=== PATIENT | female | born 1935 | race Caucasian/White ===

== ENCOUNTER 2020-02-17 17:07 | Inpatient (IN) | payer MEDICARE, MEDICAID, SELFPAY ==
[2020-02-17] VITALS (8 sets, daily range): BP systolic 73–124; BP diastolic 42–78; PULSE 95–144; RESP 16–20; TEMP 36.8–37.2; O2SAT 93–100; BMI 25.6
--- NOTE | 2020-02-17 17:13 | XR_ITS ---
WS: [id number] CHEST XRAY TECHNIQUE: Portable chest. CLINICAL INFORMATION: ams COMPARISON: None. FINDINGS: Heart: Cardiomegaly. Tortuous thoracic aorta. Lungs: Moderate chronic emphysematous changes. No acute pulmonary infiltrates. Calcified hilar nodes and calcified granulomas. Bones: Osteopenia. XR/XR chest 1V portable [id number] IMPRESSION: 1. Moderate chronic emphysematous changes. No acute pulmonary infiltrates. 2. Cardiomegaly. 3. Chronic granulomatous disease.
--- NOTE | 2020-02-17 17:13 | CTR_ITS ---
PROCEDURE INFORMATION: Exam: CT Head Without Contrast Exam date and time: 02/17/2020 5:25 PM Age: 84 years old Clinical indication: Altered mental status/memory loss; Additional info: AMS TECHNIQUE: Imaging protocol: Computed tomography of the head without contrast. Total DLP: 750.65 mGy-cm Radiation optimization: All CT scans at this facility use at least one of these dose optimization techniques: automated exposure control; mA and/or kV adjustment per patient size (includes targeted exams where dose is matched to clinical indication); or iterative reconstruction. COMPARISON: No relevant prior studies available. FINDINGS: Brain: There is volume loss and periventricular low density compatible with chronic small vessel disease changes. There is encephalomalacia in the posterior right frontal lobe and right parietal lobe and in the left parietal/occipital lobes. There is decreased density in the right caudate, right internal and external capsule and white matter adjacent to the frontal horn of the right lateral ventricle concerning for edema/new area of infarction. There is no midline shift. There is no acute hemorrhage. No additional area of new edema. Ventricles: There is mild mass effect/narrowing of the adjacent right lateral ventricle. The remaining ventricles are appropriate in size. Bones/joints: Unremarkable. No acute fracture. Sinuses: Visualized sinuses are unremarkable. No fluid levels. Mastoid air cells: Visualized mastoid air cells are well aerated. Soft tissues: Unremarkable. CT/CT head wo con* [id number] IMPRESSION: 1. Chronic volume loss and small vessel disease changes with multiple areas of encephalomalacia. 2. There is a ill-defined area of decreased density in the right basal ganglia/white matter concerning for new area of evolving infarction/edema with mild mass effect on the right lateral ventricle. No hemorrhage or midline shift. Radiation Dose CTDIVOL = (mGy): DLP = 750.65 (mGy-cm)
--- NOTE | 2020-02-17 17:14 | ECG_ITS ---
Measurements Intervals [place] Rate: 130 P: [place]: 0 QRS: -34 QRSD: 74 T: 38 QT: 304 QTc: 447 ATRIAL FIBRILLATION WITH RAPID VENTRICULAR RESPONSE LEFT AXIS DEVIATION [QRS AXIS < -30] MINIMAL ST DEPRESSION [0.025+ mV ST DEPRESSION] No previous ECG available for comparison Electronically Signed On 02-18-2020 18:08:03 CDT by Alana Seals M.D. [email or web address]
--- NOTE | 2020-02-17 17:17 | ED_ITS ---
HPI - Altered Mental Status General: Chief Complaint: General Medical Stated Complaint: UNRESPONSIVE Time Seen by Provider: 02/17/20 17:07 Source: EMS Mode of arrival: EMS Limitations: altered mental status History of Present Illness: HPI narrative: 84-year-old female from reading [facility] notes from physician sounds like patient is at end-of-life and he recommended comfort care but family wants patient to be sent to the hospital for further work-up and treatment. She has been unresponsive for 3 to 4 days and rarely opens her eyes. Patient is breathing currently on her own will not answer any questions or respond to any stimuli. She has a history of strokes in the past. Has been afebrile. MD complaint: altered mental status Onset (ago): day(s) Review of Systems General: Reports: ROS unobtainable due to mental status PFSH ED PFSH: Social History Smoking and tobacco status: former smoker Physical Exam Const: COMMON NORMALS: negative for alert EXAM LIMITATIONS: altered mental status GENERAL APPEARANCE: lethargic, ill appearing and frail appearing ORIENTATION/CONSCIOUSNESS: Yes lethargic; not oriented to person and not oriented to place HENMT: COMMON NORMALS: normocephalic and head/scalp atraumatic HEAD & SCALP: normocephalic and atraumatic Eye: COMMON NORMALS: PERRL and EOMs intact bilaterally PUPIL: Yes PERRL Neck/C-Spine: COMMON NORMALS: full ROM and supple Chest: COMMONS NORMALS: inspection of chest normal and palpation of chest normal Resp: COMMON NORMALS: normal respiratory effort, no retractions, no use of accessory muscles and clear to auscultation bilaterally AUSCULTATION: clear to auscultation bilaterally Cardio: COMMON NORMALS: no murmurs RATE: tachycardic RHYTHM: abnormal rhythm irregularly irregular GI: COMMON NORMALS: normal to inspection, nondistended, normoactive bowel sounds, soft to palpation, non-tender and no masses PALPATION: Yes soft Extremity: COMMON NORMALS: normal to inspection and full ROM Neuro: SENSORIUM/ORIENTATION: No alert, No oriented to person, No oriented to place and Yes lethargic SPEECH: speech abnormal Psych: MEMORY/COGNITION: Yes cognition grossly impaired Skin: COMMON NORMALS: no rashes or lesions noted and no wounds GENERAL SKIN EXAM: no rashes or lesions noted Course Vital Signs: Vital signs: Vital Signs Temperature 98.9 F 02/17/20 17:12 Pulse Rate 139 H 02/17/20 18:37 Respiratory Rate 17 02/17/20 18:37 Blood Pressure 73/42 02/17/20 18:37 Pulse Oximetry 100 02/17/20 18:37 MDM - Altered Mental Status MDM Narrative: Medical decision making narrative: Patient presents with altered mental status along with likely CVA and urinary tract infection. Patient hypotensive and septic. Her blood pressure here is improving with IV fluids so is her heart rate. I had a long discussion with her grandson who is power of vp of global marketing and he did not want any aggressive care. Patient is now DNR and DNI he does not want central line or pressors. We will treat her with IV fluids and IV antibiotics and admit her to the hospital and reassess in a day or 2. Grandson was considering comfort care but states he would like to try at least a day or 2 of treatment at this time. I spoke to Dr. Miller and will admit to [facility]. Lab Data: Labs: Lab Results 02/17/20 02/17/20 02/17/20 Range/Units 18:08 18:08 18:08 WBC 13.2 H (4.0-10.0) 10^3/ uL RBC 4.47 (4.1-5.3) 10^6/u L Hgb 13.4 (11.5-15.3) g/dL Hct 45.9 (37.0-47.0) % MCV 102.7 H (81-99) fL MCH 30.0 (28.0-34.0) pg MCHC 29.2 L (30.0-36.0) g/dL RDW 17.1 H (12.1-15.1) % Plt Count 223 (130-400) 10^3/c mm MPV 11.9 H (7.4-10.4) fL Neut % (Auto) 78.5 % Lymph % (Auto) 13.8 % [place] % (Auto) 6.5 % Eos % (Auto) 0.2 % Baso % (Auto) 0.2 % Neut # (Auto) 10.4 H (1.8-7.7) 10^3/u L Lymph # (Auto) 1.8 (0.8-4.8) 10^3/u L [place] # (Auto) 0.9 (0.2-0.9) 10^3/u L Eos # (Auto) 0.0 (0.0-0.8) 10^3/u L Baso # (Auto) 0.0 (0.0-0.1) 10^3/u L Nucleated RBC % (a uto) 0.2 % Nucleated RBCs # 0.0 /100WBC PT 23.00 H (10.5-13.3) SECO NDS INR 1.95 H (0.8-1.2) Sodium 158 H (136-145) mmol/L Potassium 3.9 (3.5-5.1) mmol/L Chloride 120 H (98-107) mmol/L Carbon Dioxide 27 (22-29) mmol/L Anion Gap 14.9 (5-19) BUN 25 H (8-23) mg/dL Creatinine 0.6 (0.5-0.9) mg/dL Glucose 127 H (65-115) mg/dL Calculated Osmolal ity 324 H (285-295) mOsm/k g Lactate (0.5-2.2) mmol/L Calcium 8.6 (8.5-10.5) mg/dL Total Bilirubin 0.5 (0.15-1.2) mg/dL AST 32 (0-32) U/L ALT 25 (0-33) U/L Alkaline Phosphata se 63 (35-105) IU/L Total Protein 6.3 L (6.6-8.7) g/dL Albumin 3.2 L (3.5-5.2) g/dL Globulin 3.1 (1.3-4.6) g/dL 02/17/20 Range/Units 18:08 WBC (4.0-10.0) 10^3/ uL RBC (4.1-5.3) 10^6/u L Hgb (11.5-15.3) g/dL Hct (37.0-47.0) % MCV (81-99) fL MCH (28.0-34.0) pg MCHC (30.0-36.0) g/dL RDW (12.1-15.1) % Plt Count (130-400) 10^3/c mm MPV (7.4-10.4) fL Neut % (Auto) % Lymph % (Auto) % [place] % (Auto) % Eos % (Auto) % Baso % (Auto) % Neut # (Auto) (1.8-7.7) 10^3/u L Lymph # (Auto) (0.8-4.8) 10^3/u L [place] # (Auto) (0.2-0.9) 10^3/u L Eos # (Auto) (0.0-0.8) 10^3/u L Baso # (Auto) (0.0-0.1) 10^3/u L Nucleated RBC % (a uto) % Nucleated RBCs # /100WBC PT (10.5-13.3) SECO NDS INR (0.8-1.2) Sodium (136-145) mmol/L Potassium (3.5-5.1) mmol/L Chloride (98-107) mmol/L Carbon Dioxide (22-29) mmol/L Anion Gap (5-19) BUN (8-23) mg/dL Creatinine (0.5-0.9) mg/dL Glucose (65-115) mg/dL Calculated Osmolal ity (285-295) mOsm/k g Lactate 1.8 (0.5-2.2) mmol/L Calcium (8.5-10.5) mg/dL Total Bilirubin (0.15-1.2) mg/dL AST (0-32) U/L ALT (0-33) U/L Alkaline Phosphata se (35-105) IU/L Total Protein (6.6-8.7) g/dL Albumin (3.5-5.2) g/dL Globulin (1.3-4.6) g/dL Imaging Data^: CT Head: Radiologist's impression: [place] [address] CT Scan Report Signed Patient: TRINIDAD ALONSO Unit #: [id number] : 1935 Age/Sex: 84 / F ADM Date: 02/17/20 Loc: ER Room/Bed: Attending Dr: Ordering Provider/Ordering MD: August Levy MD Date of Service: 02/17/20 Procedure(s): CT head wo con* [id number] Accession Number(s): [id number] Report Number: [id number] PROCEDURE INFORMATION: Exam: CT Head Without Contrast Exam date and time: 02/17/2020 5:25 PM Age: 84 years old Clinical indication: Altered mental status/memory loss; Additional info: AMS TECHNIQUE: Imaging protocol: Computed tomography of the head without contrast. Total DLP: 750.65 mGy-cm Radiation optimization: All CT scans at this facility use at least one of these dose optimization techniques: automated exposure control; mA and/or kV adjustment per patient size (includes targeted exams where dose is matched to clinical indication); or iterative reconstruction. COMPARISON: No relevant prior studies available. FINDINGS: Brain: There is volume loss and periventricular low density compatible with chronic small vessel disease changes. There is encephalomalacia in the posterior right frontal lobe and right parietal lobe and in the left parietal/occipital lobes. There is decreased density in the right caudate, right internal and external capsule and white matter adjacent to the frontal horn of the right lateral ventricle concerning for edema/new area of infarction. There is no midline shift. There is no acute hemorrhage. No additional area of new edema. Ventricles: There is mild mass effect/narrowing of the adjacent right lateral ventricle. The remaining ventricles are appropriate in size. Bones/joints: Unremarkable. No acute fracture. Sinuses: Visualized sinuses are unremarkable. No fluid levels. Mastoid air cells: Visualized mastoid air cells are well aerated. Soft tissues: Unremarkable. CT/CT head wo con* [id number] IMPRESSION: 1. Chronic volume loss and small vessel disease changes with multiple areas of encephalomalacia. 2. There is a ill-defined area of decreased density in the right basal ganglia/white matter concerning for new area of evolving infarction/edema with mild mass effect on the right lateral ventricle. No hemorrhage or midline shift. CXR: Attestation: I personally reviewed and interpreted this imaging study as follows: My impression: no acute abnormality EKG Data^: EKG 1: Attestation: I personally reviewed and interpreted this EKG as follows: EKG interpretation date: 02/17/20 EKG interpretation time: 18:36 Interpretation: afib hr [address] or t wave abnormalities Critical Care Time Critical Care Time: Critical Care Time: Yes Total Critical Care Time: 36 Attestation: This case had a high probability of a clinically significant, sudden, or life threatening deterioration of this patient's condition which required my full and direct attention, intervention and personal management. Discharge Plan Discharge Patient Disposition: Admitted As Inpatient Clinical Impression: Septic shock, Cystitis, A-fib, CVA (cerebral vascular accident) Condition: Stable Prescriptions: No Action acetaminophen 325 mg Tablet See Rx Instructions .ROUTE .COMPLEX RF: 0 Tylenol 325 mg Tablet 650 mg PO BID RF: 0 Senna-S 8.6-50 mg Tablet 2 tab PO BID RF: 0 Plavix 75 mg Tablet 75 mg PO DAILY RF: 0 Pepcid 20 mg Tablet 20 mg PO DAILY RF: 0 Milk of Magnesia 400 mg/5 mL Suspension See Rx Instructions .ROUTE .COMPLEX RF: 0 losartan 25 mg Tablet 12.5 mg PO DAILY RF: 0 Lexapro 10 mg Tablet 10 mg PO DAILY RF: 0 Dulcolax (bisacodyl) 4 tab PO PRN RF: 0 Mylanta Maximum Strength 30 ml PO Q6H PRN (Reason: Indigestion) RF: 0 1/2 Ns Tko See Rx Instructions .ROUTE .COMPLEX RF: 0 Diflucan 100 mg Tablet 100 mg PO DAILY RF: 0 Keppra 500 mg Tablet 500 mg PO DAILY RF: 0 Zofran 4 mg Tablet 4 mg PO Q8H PRN (Reason: Nausea) RF: 0 ceftriaxone 1 gram Recon Soln 1 g IV EVERY OTHER DAY RF: 0 Dulcolax (bisacodyl) 10 mg Suppository 10 mg CA PRN RF: 0 magnesium citrate Solution See Rx Instructions .ROUTE .COMPLEX RF: 0 albuterol sulfate 90 mcg/actuation Hfa Aerosol Inhaler 2 puff INHALATION Q4H PRN (Reason: Wheezing) RF: 0 acetaminophen 500 mg/15 mL Liquid 500 mg PO Q4H PRN (Reason: Pain) RF: 0 Florastor 250 mg Capsule 25 mg PO DAILY RF: 0 Ds 1/2 Ns With 10 Meq Kcl See Rx Instructions .ROUTE .COMPLEX RF: 0 Nystatin Solution 5 ml PO QID RF: 0 Ss Emema See Rx Instructions .ROUTE .COMPLEX RF: 0 acetaminophen See Rx Instructions .ROUTE .COMPLEX RF: 0 guaifenesin 2 tsp PO Q6H PRN (Reason: Cough) RF: 0 nystatin See Rx Instructions .ROUTE .COMPLEX RF: 0 Referrals: Sd Shields MD [Primary Care Provider] - Coding Level of Care Code ED Funeral Pre Need Consultant for Chg Fwd Exam Comprehensive
[2020-02-17] MEDS: sodium chloride 0.9% 1,000 ML 999 ML IV ×2 (18:20)
[2020-02-17 18:41] LABS: Basophils % 0.2 %; Eosinophils % 0.2 %; Hematocrit 45.9 % (37.0-47.0); Hemoglobin 13.4 g/dL (11.5-15.3); Lymphocytes # 1.8 10^3/uL (0.8-4.8); Lymphocytes % 13.8 %; Mean Corpuscular HGB Conc 29.2 g/dL (30.0-36.0); Mean Corpuscular Volume 102.7 fL (81-99); Mean Platelet Volume 11.9 fL (7.4-10.4); Monocytes # 0.9 10^3/uL (0.2-0.9); Monocytes % 6.5 %; Neutrophils # 10.4 10^3/uL (1.8-7.7); Neutrophils % 78.5 %; Nucleated Red Blood Cells % 0.2 %; Platelet Count 223 10^3/cmm (130-400); Red Blood Count 4.47 10^6/uL (4.1-5.3); Red Cell Distribution Width 17.1 % (12.1-15.1); White Blood Count 13.2 10^3/uL (4.0-10.0)
[2020-02-17] MEDS: cefTRIAXone 1,000 MG in sodium chloride 0.9% (plus) 50 ML 100 MG IV (18:41)
[2020-02-17 18:52] LABS: Alanine Aminotransferase 25 U/L (0-33); Albumin Level 3.2 g/dL (3.5-5.2); Alkaline Phosphatase 63 IU/L (35-105); Anion Gap 14.9 (5-19); Aspartate Amino Transferase 32 U/L (0-32); Blood Urea Nitrogen 25 mg/dL (8-23); Calcium 8.6 mg/dL (8.5-10.5); Carbon Dioxide 27 mmol/L (22-29); Chloride 120 mmol/L (98-107); Globulin 3.1 g/dL (1.3-4.6); Glucose 127 mg/dL (65-115); Lactate (Lactic Acid level) 1.8 mmol/L (0.5-2.2); Osmolality Calculated 324 mOsm/kg (285-295); Potassium 3.9 mmol/L (3.5-5.1); Sodium 158 mmol/L (136-145); Total Bilirubin 0.5 mg/dL (0.15-1.2); Total Protein 6.3 g/dL (6.6-8.7)
[2020-02-17 18:56] LABS: INR 1.95 (0.8-1.2)
[2020-02-17 19:39] LABS: Add Urine Microscopic? YES; Bilirubin Urine 1+ (NEGATIVE); Blood Urine 3+ (Negative); Glucose Urine UA 1+ (Normal); Ketones Urine 1+ (Negative); Leukocyte Esterase Urine Negative (Negative); Nitrate Urine Negative (Negative); Protein Urine Neg (Negative); Urine Appearance Turbid (CLEAR); Urine Color Yellow (Yellow); Urobilinogen Urine Norm (Negative); pH Urine 5 (5-7)
[2020-02-17 19:40] LABS: Add Urine Culture? Yes; Bacteria Urine 1+; Squamous Epithelial Cell Urine >100 (0-5); WBC Urine 0-4 /hpf (0-5)
--- NOTE | 2020-02-17 21:06 | PC.NURSE ---
pt brought up from ED. pt is unresponsive does not respond to noxious stimuli. pt is on 2l NC and doesn't appear to be in any distress at this time. Unable to complete admisson except physical assessment due to her neurological status. no wounds noted at this time. continuing to monitor pt. VSS at this time.
--- NOTE | 2020-02-17 22:44 | PM.HP ---
Providers/Chief Complaint Admitting Physician: Juhi Bush MD Primary Care Provider: Sd Shields MD Chief Complaint: UNRESPONSIVE History of Present Illness Dee Cole is a 84 year old female who was transferred from part of the [facility] and rehab. Patient had been unresponsive and not taking any oral intake for several days. Review of records sent with her indicates that she had had some nausea, vomiting and diarrhea for a couple of days last week. There was an index case of norovirus in the facility. The symptoms improved though she did have some intermittent low-grade fever. Her oral intake decreased and as early as February 12 she was not really taking anything at all. Clinically she was felt to be dry. An IV was placed and she has received several liters of fluid over the last few days. Nevertheless she has not shown improvement back to her baseline. She had low blood pressure and ultimately ended up being transferred here for further evaluation. Initial blood pressures were in the 70s systolic. Patient was noted to be an atrial fibrillation and tachycardic in the 130s. She has responded to some IV fluids with improvement in her blood pressures and to a heart rate. Urinalysis suggested possibility of UTI and CT imaging showed what may be an evolving stroke in the basal ganglia. Mrs. Cole has had multiple prior strokes. ER physician spoke with patient's grandson. He does not wish for aggressive measures. He wanted to see if she would improve with some antibiotics over the next couple of days and if not consider transfer back to facility with end-of-life care. ED provider specifically mentioned family requested no ICU admission, no pressor support, no central line and no intubation. History is limited to the available records although there is a nice note by Dr. Shields dated February 12 with a lot of details. While the information I have does not indicate a prior history of atrial fibrillation, I will note that her cardiovascular exam by him on February 12 indicated an irregularly irregular rhythm. Review of Systems General: Reports: ROS unobtainable due to medical condition and ROS unobtainable due to mental status Medications/Allergies Home Medications Medication Instructions Recorded Confirmed Last Taken Type 1/2 Ns Tko See Rx Instructions .ROUTE .COMPLEX 02/17/20 02/17/20 Unknown History Ds 1/2 Ns With 10 Meq Kcl See Rx Instructions .ROUTE .COMPLEX 02/17/20 02/17/20 Unknown History Dulcolax (bisacodyl) 4 tab PO PRN 02/17/20 02/17/20 Unknown History Mylanta Maximum Strength 30 ml PO Q6H PRN 02/17/20 02/17/20 Unknown History Nystatin Solution 5 ml PO QID 02/17/20 02/17/20 Unknown History Saccharomyces boulardii [Florastor] 25 mg PO DAILY 02/17/20 02/17/20 Unknown History Ss Emema See Rx Instructions .ROUTE .COMPLEX 02/17/20 02/17/20 Unknown History acetaminophen 500 mg PO Q4H PRN 02/17/20 02/17/20 Unknown History acetaminophen See Rx Instructions .ROUTE .COMPLEX 02/17/20 02/17/20 Unknown History acetaminophen See Rx Instructions .ROUTE .COMPLEX 02/17/20 02/17/20 Unknown History acetaminophen [Tylenol] 650 mg PO BID 02/17/20 02/17/20 02/14/20 History albuterol sulfate 2 puff INHALATION Q4H PRN 02/17/20 02/17/20 Unknown History bisacodyl [Dulcolax (bisacodyl)] 10 mg GA PRN 02/17/20 02/17/20 Unknown History ceftriaxone 1 g IV EVERY OTHER DAY 02/17/20 02/17/20 02/15/20 History clopidogrel [Plavix] 75 mg PO DAILY 02/17/20 02/17/20 02/14/20 History escitalopram oxalate [Lexapro] 10 mg PO DAILY 02/17/20 02/17/20 Unknown History famotidine [Pepcid] 20 mg PO DAILY 02/17/20 02/17/20 Unknown History fluconazole [Diflucan] 100 mg PO DAILY 02/17/20 02/17/20 Unknown History guaifenesin 2 tsp PO Q6H PRN 02/17/20 02/17/20 Unknown History levetiracetam [Keppra] 500 mg PO DAILY 02/17/20 02/17/20 Unknown History losartan 12.5 mg PO DAILY 02/17/20 02/17/20 02/14/20 History magnesium citrate See Rx Instructions .ROUTE .COMPLEX 02/17/20 02/17/20 Unknown History magnesium hydroxide [Milk of See Rx Instructions .ROUTE .COMPLEX 02/17/20 02/17/20 Unknown History Magnesia] nystatin See Rx Instructions .ROUTE .COMPLEX 02/17/20 02/17/20 Unknown History ondansetron HCl [Zofran] 4 mg PO Q8H PRN 02/17/20 02/17/20 Unknown History sennosides-docusate sodium 2 tab PO BID 02/17/20 02/17/20 02/14/20 History [Senna-S] Allergies Allergy/AdvReac Type Severity Reaction Status Date / Time pseudoephedrine Allergy Unknown Verified 02/17/20 17:18 [From Sudafed] simvastatin [From Zocor] Allergy Unknown Verified 02/17/20 17:18 PFSH Acute PFSH: Medical History (Updated 02/18/20 @ 05:15 by Juhi Bush MD) Blindness Chronic anemia CVA (cerebral vascular accident) History of recurrent strokes Depression Diabetes mellitus type 2 with insulin per retirement records, but not on insulin presently History of psychosis Recurrent aspiration pneumonia Seizure disorder keppra Vascular dementia Family History (Updated 02/18/20 @ 04:50 by Juhi Bush MD) Other Family history unknown Social History (Updated 02/18/20 @ 04:50 by Juhi Bush MD) Smoking and tobacco status: former smoker Housing: Prison Supplemental PFSH Information: I suspect patient has a history of atrial fibrillation though not mentioned in retirement records. She had mention of an irregularly irregular rhythm by primary provider last week. Vitals/I&O/Wt Last Vital Signs Temp 98.3 F 02/17/20 21:45 Pulse 95 02/17/20 21:45 Resp 17 02/17/20 21:45 BP 121/78 02/17/20 21:45 Pulse Ox 98 02/17/20 21:45 02/17/20 02/17/20 02/17/20 06:59 14:59 22:59 Intake Total 2049 Balance 2049 Weight last 48 hrs Weight 63.503 kg Physical Exam Const: EXAM LIMITATIONS: other limitations (Patient is nonresponsive) GENERAL APPEARANCE: not disheveled HENMT: COMMON NORMALS: normocephalic and head/scalp atraumatic MOUTH: oral and palatal mucosa normal (Though a bit dry) THROAT: posterior oropharynx normal Eye: OTHER: Pupils are 2 to 3 mm and equal bilaterally. I am not able to adequately assess extraocular movements. Patient stares straight forward. Neck/C-Spine: COMMON NORMALS: supple Resp: COMMON NORMALS: normal respiratory effort and no retractions AUSCULTATION: wheezes scattered wheezes Cardio: RHYTHM: abnormal rhythm irregularly irregular GI: COMMON NORMALS: normal to inspection, nondistended, normoactive bowel sounds, soft to palpation and non-tender : COMMON NORMALS: Yes external appearance normal BLADDER/KIDNEY EXAM: No catheter in place Extremity: NARRATIVE EXTREMITY EXAM: All extremities are puffy. Right hand is larger than left hand. Both lower extremities are about equal bilaterally with pitting edema Neuro: OTHER: Tremor noted to the right upper extremity, almost a pill-rolling tremor. Right upper extremity also with some muscle wasting and contraction of the right wrist noted compared to the left. Skin: NARRATIVE SKIN EXAM: Patient has some erythema and scattered bruising noted to upper extremities and some older bruises noted to both anterior aguirre several on the left 1 or 2 on the right. Data : 02/17/20 18:08 02/17/20 18:08 Micro: Microbiology 02/17/20 18:08 Blood Culture - Preliminary Blood SPECIMEN COLLECTED 02/17/20 18:09 Blood Culture - Preliminary Blood SPECIMEN COLLECTED CT Head: Radiologist's impression: IMPRESSION: 1. Chronic volume loss and small vessel disease changes with multiple areas of encephalomalacia. 2. There is a ill-defined area of decreased density in the right basal ganglia/white matter concerning for new area of evolving infarction/edema with mild mass effect on the right lateral ventricle. No hemorrhage or midline shift. EKG 1: I personally reviewed and interpreted this EKG as follows: My Interpretation: afib with RVR at 130 A&P Assessment and plan (1) Acute encephalopathy: Likely multifactorial from dehydration/metabolic reasons given recent GI symptoms and lack of oral intake, potentially infectious source from possibility of aspiration event and/or UTI plus or minus impact of an acute neurovascular event. Patient has had significant rapid decline in the last few days. Records indicate a history of vascular dementia which is likely a contributing factor as well. Status: Acute (2) A-fib: With rapid ventricular response, suspect patient has a history of such based on retirement records although I do not see this specifically listed. Does not appear to be on chronic anticoagulation beyond Plavix. Status: Acute Qualifiers: Atrial fibrillation type: unspecified Qualified Code(s): I48.91 - Unspecified atrial fibrillation (3) Abnormal urinalysis: Suggestive of a contaminated specimen with significant epithelial cells. She has been on antibiotic coverage at the retirement for several days already however I am 1 of the presumptive diagnosis for the antibiotics was possibility of UTI. Status: Acute (4) CVA (cerebral vascular accident): Patient has a history of recurrent CVAs and looks to have had a recent, still evolving CVA in the basal ganglia area. Status: Chronic Qualifiers: CVA mechanism: unspecified Qualified Code(s): I63.9 - Cerebral infarction, unspecified (5) Seizure disorder: On chronic Keppra Status: Chronic Additional A&P Information Inpatient admission IV fluids Antibiotics to include coverage for urinary as well as possible pulmonary source of infection including possibility of aspiration Follow-up pending cultures Recheck labs in the morning Hold majority of oral medications except for those which we do not have alternatives Speech evaluation, PT and OT if patient becomes more alert IV metoprolol intermittently for rate control, have not started drip secondary to family's wishes We will monitor patient's clinical response to above treatment and if not demonstrating any signs of improvement family may consider disposition back to skilled facility with end-of-life care Allow natural Attestations Medical Necessity Statement*: Anticipated stay greater than 2 midnights in a patient who has not responded to measures at retirement thus far. She will be on IV antibiotics and IV fluids. If no clinical improvement after couple of days will likely transition to comfort care. Coding Level of Care Code Acute Retail Selling Specialist for Joann Villalpando Diagnoses Acute encephalopathy G93.40 A-fib I48.91 Atrial fibrillation type: unspecified Abnormal urinalysis R82.90 CVA (cerebral vascular accident) I63.9 CVA mechanism: unspecified Seizure disorder G40.909
[2020-02-18] VITALS (10 sets, daily range): BP systolic 121–140; BP diastolic 61–95; PULSE 59–132; RESP 16–20; TEMP 36.6–37.3; O2SAT 94–99
[2020-02-18] MEDS: sodium chloride 0.9% 1,000 ML 100 ML IV ×2 (05:19→15:52)
[2020-02-18] MEDS: metroNIDAZOLE IV 250 MG in empty flexible container 1 EACH 50 MG IV ×3 (05:48→20:44)
[2020-02-18 09:28] LABS: Basophils % 0.2 %; Eosinophils % 0.2 %; Hematocrit 44.1 % (37.0-47.0); Hemoglobin 12.6 g/dL (11.5-15.3); Lymphocytes # 1.6 10^3/uL (0.8-4.8); Lymphocytes % 12.7 %; Mean Corpuscular HGB Conc 28.6 g/dL (30.0-36.0); Mean Corpuscular Hemoglobin 30.5 pg (28.0-34.0); Mean Corpuscular Volume 106.8 fL (81-99); Mean Platelet Volume 11.7 fL (7.4-10.4); Monocytes # 0.7 10^3/uL (0.2-0.9); Monocytes % 5.4 %; Neutrophils # 10.3 10^3/uL (1.8-7.7); Neutrophils % 80.7 %; Nucleated Red Blood Cells % 0 %; Platelet Count 198 10^3/cmm (130-400); Red Blood Count 4.13 10^6/uL (4.1-5.3); Red Cell Distribution Width 17.2 % (12.1-15.1); White Blood Count 12.7 10^3/uL (4.0-10.0)
[2020-02-18 09:41] LABS: Anion Gap 11.9 (5-19); Blood Urea Nitrogen 23 mg/dL (8-23); Calcium 8.1 mg/dL (8.5-10.5); Carbon Dioxide 24 mmol/L (22-29); Chloride 125 mmol/L (98-107); Glucose 127 mg/dL (65-115); Osmolality Calculated 322 mOsm/kg (285-295); Potassium 3.9 mmol/L (3.5-5.1); Sodium 157 mmol/L (136-145)
--- NOTE | 2020-02-18 09:51 | PC.NURSE ---
Called [facility] [phone]. Spoke with MOISES Olmedo, she said patient is on Plavix only, no anticoagulants.
--- NOTE | 2020-02-18 11:55 | PC.CHAP ---
Pastoral Care Encounter/Spiritual Assessment Type of Contact [] Declined floor installation mechanic visit [] Patient/Family/Request visit [] Outpatient visit [] Follow-up visit [] Physician referral [] Code/Alert [] Routine visit [] Staff referral [] Actively dying [] Patient sleeping [] Family support [] [] Out of room [] Palliative care [] [] Receiving care in room [] Pre-surgical visit [] Trauma [] Long length of stay [] ICU visit [x] Other: not responsive / fellow up Relational/Emotional Strength [] Patient feels connected with others/family/visitors/staff [] Distress [] Loneliness/isolation [] Abandonment Spirituality of Patient [] Person of Seda [] Attends Gnosticism of their Seda [] Believes in Prayer [] Reads Bible or Adventism materials [] There are Spiritual issues to be addressed Tool Repairer Interventions [] Prayer [] Active listening [] Non-anxious presence [] Spiritual/emotional support [] Crisis/trauma care [] Spiritual counseling [] Bereavement support [] Provided bereavement packet [] Provided Bible/devotional materials [] Provided toy/stuffed animal, coloring book to patient or family member [] Provided Communion [] Anointing/[place] [] Salvation [] Completed spiritual assessment [] Other: Impact on Illness or Injury [] Angry [] Fearful [] Anxious [] Often cries [] Exhaustion [] Unable to work [] Unable to attend methodist [] Unable to walk/stand [] Unable to read [] Unable to drive [] Unable to eat/drink [] Unable to sleep [] Unable to be with family [x] Patient intubated [] Other: Summary Fellow up Time spent with patient 5 mins
--- NOTE | 2020-02-18 13:40 | PM.PN ---
Subjective Subjective: Interval history: Chart reviewed, morning labs noted including slight decrease in leukocytosis from 13.2->12.7, continued hypernatremia with sodium of 157. Heart rate seems to be improving as well as blood pressure. Patient resting in bed, noted resting tremor of RUE, awake but simply staring at the wall/window, does not seem to aware of my presence in the room, does not track, does not follow commands. IVF running. Per nursing staff, IV in RUE infiltrated earlier with noted edema of arm which is currently elevated. Medications: Reviewed: Yes Medication Review Details: Active Medications Generic Name Dose Route Start Last Admin Trade Name Freq PRN Reason Stop Dose Admin Acetaminophen 650 mg 02/18/20 04:59 Tylenol MS Q6H PRN pain or fever Albuterol Sulfate 2 puff 02/18/20 03:43 Ventolin INHALATION Q4H.RESPIRATORY P RN Wheezing Bisacodyl 10 mg 02/18/20 03:45 Bisac-Evac MS PRN MONIK Clopidogrel Bisulf ate 75 mg 02/18/20 09:00 02/18/20 12:22 Plavix PO Not Given DAILY MONIK Escitalopram Oxala te 10 mg 02/18/20 09:00 02/18/20 12:23 Lexapro PO Not Given DAILY MONIK Sodium Chloride 1,000 mls @ 100 m ls/hr 02/18/20 04:45 02/18/20 05:19 Sodium Chloride 0.9% IV 100 mls/hr .Q10H MONIK Administration Ceftriaxone Sodium 1,000 mg/ 50 mls @ 100 mls/ hr 02/18/20 19:00 Sodium Chloride IV Q24H MONIK Protocol Levetiracetam 500 mg/ Sodium 105 mls @ 420 mls /hr 02/18/20 09:00 02/18/20 13:26 Chloride IV 420 mls/hr DAILY MONIK Administration Metronidazole 250 mg/ N/A 50 mls @ 50 mls/h r 02/18/20 05:30 02/18/20 05:48 IV 50 mls/hr Q8H MONIK Administration Protocol Metoprolol Tartrat e 5 mg 02/18/20 04:37 Metoprolol Tartr ate IV Q4H PRN HR > 110 if SBP > /=110 Ondansetron HCl 4 mg 02/18/20 04:35 Zofran IVP Q4H PRN NAUSEA AND VOMITI NG pseudoephedrine [From Sudafed] Allergy (Verified 02/17/20 17:18) Unknown simvastatin [From Zocor] Allergy (Verified 02/17/20 17:18) Unknown Vitals/I&O/Wt Last Vital Signs Temp 97.9 F 02/18/20 11:39 Pulse 96 02/18/20 11:39 Resp 20 H 02/18/20 11:39 BP 140/84 02/18/20 11:39 Pulse Ox 99 02/18/20 11:39 02/17/20 02/18/20 02/18/20 22:59 06:59 14:59 Intake Total 2049 Balance 2049 Weight last 48 hrs Weight 63.503 kg Physical Exam Const: COMMON NORMALS: no apparent distress and alert GENERAL APPEARANCE: cooperative, comfortable and frail appearing ORIENTATION/CONSCIOUSNESS: Yes awake OTHER: -unable to gauge orientation as not verbally responsive HENMT: COMMON NORMALS: normocephalic and head/scalp atraumatic HEAD & SCALP: normocephalic and atraumatic MOUTH: moist mucous membranes abnormal Details: parched TEETH & GINGIVA: Yes edentulous Eye: COMMON NORMALS: PERRL, EOMs intact bilaterally and conjunctivae normal CONJUNCTIVA: Yes conjunctivae normal PUPIL: Yes PERRL Neck/C-Spine: COMMON NORMALS: full ROM GENERAL: Yes normal visual inspection and Yes trachea midline Resp: COMMON NORMALS: normal respiratory effort, no retractions, no use of accessory muscles and clear to auscultation bilaterally EFFORT & INSPECTION: Yes symmetric chest movement and No tachypneic AUSCULTATION: clear to auscultation bilaterally Cardio: COMMON NORMALS: regular rate, S1 normal heart sound, S2 normal heart sound and no murmurs RATE: regular rate RHYTHM: abnormal rhythm irregularly irregular HEART SOUNDS: S1 normal and S2 normal GI: COMMON NORMALS: normal to inspection, nondistended, normoactive bowel sounds and soft to palpation PALPATION: Yes soft Extremity: COMMON NORMALS: normal to inspection, no clubbing, cyanosis or edema and no pedal edema Neuro: SENSORIUM/ORIENTATION: Yes alert and Yes other (unable to gauge orientation as non-verbal) OTHER: -noted resting tremor of RUE -does not follow commands Psych: ATTITUDE: Yes calm MOOD & AFFECT: Yes flat affect Skin: COMMON NORMALS: no rashes or lesions noted, no jaundice, no petechiae and no mottling GENERAL SKIN EXAM: no rashes or lesions noted Data : 02/18/20 09:12 02/18/20 09:12 Micro: Microbiology 02/17/20 18:08 Blood Culture - Preliminary Blood SPECIMEN COLLECTED 02/17/20 18:09 Blood Culture - Preliminary Blood SPECIMEN COLLECTED A&P Assessment and plan (1) Acute encephalopathy: -With minimal responsiveness over the past several days and clinical evidence of evolving CVA involving right basal ganglia/white matter with noted mild mass-effect on right lateral ventricle on CT head done on admission. This is also compounded by decreased oral intake and associated dehydration, likely underlying vascular dementia -Continues to be minimally responsive clinically -Neurochecks, fall/seizure/aspiration precautions -PT/OT/ST evaluations if possible -Currently NPO -continue to monitor vital signs, seems to be more hemodynamically stable today -continue empiric antibiotics (ceftriaxone/flagyl) for treatment of possible UTI and aspiration -no acute findings on CXR -mild leukocytosis, continue to trend Status: Acute (2) CVA (cerebral vascular accident): -Has known history of multiple CVAs in the past Status: Chronic Qualifiers: CVA mechanism: unspecified Qualified Code(s): I63.9 - Cerebral infarction, unspecified (3) Abnormal urinalysis: -noted UA, contaminated sample -on empiric Ceftriaxone Status: Acute (4) A-fib: -noted to have atrial fibrillation with RVR, appears to be new onset -on BB PRN IV -telemetry monitoring -has not been on AC Status: Acute Qualifiers: Atrial fibrillation type: unspecified Qualified Code(s): I48.91 - Unspecified atrial fibrillation (5) Seizure disorder: -has known seizure disorder -on IV Keppra -seizure precautions Status: Chronic (6) Vascular dementia: Status: Chronic Qualifiers: Dementia behavioral disturbance: without behavioral disturbance Qualified Code(s): F01.50 - Vascular dementia without behavioral disturbance (7) Depression: Status: Chronic Qualifiers: Depression Type: unspecified Qualified Code(s): F32.9 - Major depressive disorder, single episode, unspecified Additional A&P Information -Advanced age -NPO until more consistently awake -DVT ppx with SCDs -Dispo: return to [facility] potentially on comfort measures -Code status: DNR/DNI -very guarded prognosis Attestations Medical Necessity Statement*: Patient requires hospitalization for continued post-CVA management including monitoring of hemodynamic status, therapy evaluations, and empiric IV antibiotics for UTI and aspiration pneumonia. Time Spent in Patient Care: Greater than 35 minutes (>than 50% of time spent in counselling and/or direct pt care on unit). Coding Level of Care Code Acute Math Teacher for [facility] Fwd Exam Comprehensive Diagnoses Acute encephalopathy G93.40 CVA (cerebral vascular accident) I63.9 CVA mechanism: unspecified Abnormal urinalysis R82.90 A-fib I48.91 Atrial fibrillation type: unspecified Seizure disorder G40.909 Vascular dementia F01.50 Dementia behavioral disturbance: without behavioral disturbance Depression F32.9 Depression Type: unspecified
--- NOTE | 2020-02-18 14:10 | PC.NURSE ---
PT IS UNRESPONSIVE, PT WILL OPEN HER EYES INTERMITTENTLY, DOES NOT OPEN THEM ON COMMAND OR WITH STIMULI. FLACC PAIN SCALE USED FOR PT AND SHE DOES NOT APPEAR TO BE IN ANY PAIN OR DISTRESS.
--- NOTE | 2020-02-18 14:41 | PC.NURSE ---
SPOKE WITH DR. HERRERA REGARDING PTS PO MEDS (CLOPIDOGREL AND ESCITOLOPRAM, GIVEN A VERBAL ORDER TO HOLD BOTH MEDS UNTIL PT HAD BEEN CLEARED BY
--- NOTE | 2020-02-18 16:02 | PC.SLP ---
Patient was not able to participate in an TRAVEL REGISTERED NURSE PACU evaluation this day due to decreased alertness/responsiveness. TRAVEL REGISTERED NURSE PACU will try to follow-up with the patient tomorrow.
[2020-02-18] MEDS: cefTRIAXone 1,000 MG in sodium chloride 0.9% (plus) 50 ML 100 MG IV (18:01)
[2020-02-19] VITALS (7 sets, daily range): BP systolic 102–137; BP diastolic 69–91; PULSE 61–142; RESP 16–24; TEMP 36.5–37.1; O2SAT 92–99
[2020-02-19] MEDS: sodium chloride 0.9% 1,000 ML 100 ML IV (00:03)
[2020-02-19] MEDS: metoprolol tartrate 1 mg/1 mL SDV 5 mL 5 MG IV ×2 (00:30→14:15)
[2020-02-19] MEDS: metroNIDAZOLE IV 250 MG in empty flexible container 1 EACH 50 MG IV (04:45)
[2020-02-19 05:13] LABS: Basophils % 0.1 %; Eosinophils % 0.2 %; Hematocrit 44.6 % (37.0-47.0); Lymphocytes # 1.4 10^3/uL (0.8-4.8); Lymphocytes % 9.6 %; Mean Corpuscular HGB Conc 29.1 g/dL (30.0-36.0); Mean Corpuscular Hemoglobin 30.8 pg (28.0-34.0); Mean Corpuscular Volume 105.7 fL (81-99); Mean Platelet Volume 11.8 fL (7.4-10.4); Monocytes # 0.7 10^3/uL (0.2-0.9); Monocytes % 4.7 %; Neutrophils # 12.4 10^3/uL (1.8-7.7); Neutrophils % 84.7 %; Nucleated Red Blood Cells % 0.1 %; Platelet Count 218 10^3/cmm (130-400); Red Blood Count 4.22 10^6/uL (4.1-5.3); Red Cell Distribution Width 17.2 % (12.1-15.1); White Blood Count 14.7 10^3/uL (4.0-10.0)
[2020-02-19 05:39] LABS: Anion Gap 14.7 (5-19); Blood Urea Nitrogen 22 mg/dL (8-23); Calcium 8.5 mg/dL (8.5-10.5); Carbon Dioxide 23 mmol/L (22-29); Chloride 126 mmol/L (98-107); Glucose 115 mg/dL (65-115); Osmolality Calculated 328 mOsm/kg (285-295); Potassium 3.7 mmol/L (3.5-5.1); Sodium 160 mmol/L (136-145)
--- NOTE | 2020-02-19 12:06 | P.PN_ITS ---
Subjective Subjective: Interval history: No change clinically, no purposeful movement or participation including during PT/OT sessions. VSS, requiring supplemental oxygen. No urine output overnight. Medications: Reviewed: Yes Medication Review Details: Active Medications Generic Name Dose Route Start Last Admin Trade Name Freq PRN Reason Stop Dose Admin Acetaminophen 650 mg 02/18/20 04:59 Tylenol NC Q6H PRN pain or fever Albuterol Sulfate 2 puff 02/18/20 03:43 Ventolin INHALATION Q4H.RESPIRATORY P RN Wheezing Bisacodyl 10 mg 02/18/20 03:45 Bisac-Evac NC PRN MONIK Clopidogrel Bisulf ate 75 mg 02/18/20 09:00 02/18/20 12:22 Plavix PO Not Given DAILY MONIK Escitalopram Oxala te 10 mg 02/18/20 09:00 02/18/20 12:23 Lexapro PO Not Given DAILY MONIK Sodium Chloride 1,000 mls @ 100 m ls/hr 02/18/20 04:45 02/19/20 00:03 Sodium Chloride 0.9% IV 100 mls/hr .Q10H MONIK Administration Ceftriaxone Sodium 1,000 mg/ 50 mls @ 100 mls/ hr 02/18/20 19:00 02/18/20 18:01 Sodium Chloride IV 100 mls/hr Q24H MONIK Administration Protocol Levetiracetam 500 mg/ Sodium 105 mls @ 420 mls /hr 02/18/20 09:00 02/19/20 10:37 Chloride IV 420 mls/hr DAILY MONIK Administration Metronidazole 250 mg/ N/A 50 mls @ 50 mls/h r 02/18/20 05:30 02/19/20 04:45 IV 50 mls/hr Q8H MONIK Administration Protocol Metoprolol Tartrat e 5 mg 02/18/20 04:37 02/19/20 00:30 Metoprolol Tartr ate IV 5 mg Q4H PRN Administration HR > 110 if SBP > /=110 Ondansetron HCl 4 mg 02/18/20 04:35 Zofran IVP Q4H PRN NAUSEA AND VOMITI NG pseudoephedrine [From Sudafed] Allergy (Verified 02/17/20 17:18) Unknown simvastatin [From Zocor] Allergy (Verified 02/17/20 17:18) Unknown Vitals/I&O/Wt Last Vital Signs Temp 98.6 F 02/19/20 08:00 Pulse 61 02/19/20 09:25 Resp 18 02/19/20 09:25 BP 117/91 02/19/20 08:00 Pulse Ox 95 02/19/20 09:25 02/18/20 02/19/20 02/19/20 22:59 06:59 14:59 Intake Total 1100 / 1205 818.333 / 2022.333 Output Total 0 / 0 Balance 1100 / 1205 818.333 / 2022. Weight last 48 hrs Weight 63.503 kg Physical Exam Const: COMMON NORMALS: no apparent distress and alert GENERAL APPEARANCE: cooperative, comfortable and frail appearing ORIENTATION/CONSCIOUSNESS: Yes awake OTHER: -unable to gauge orientation as not verbally responsive HENMT: COMMON NORMALS: normocephalic and head/scalp atraumatic HEAD & SCALP: normocephalic and atraumatic MOUTH: moist mucous membranes abnormal Details: parched TEETH & GINGIVA: Yes edentulous Eye: COMMON NORMALS: PERRL, EOMs intact bilaterally and conjunctivae normal CONJUNCTIVA: Yes conjunctivae normal PUPIL: Yes PERRL Neck/C-Spine: COMMON NORMALS: full ROM GENERAL: Yes normal visual inspection and Yes trachea midline Resp: COMMON NORMALS: normal respiratory effort, no retractions, no use of accessory muscles and clear to auscultation bilaterally EFFORT & INSPECTION: Yes symmetric chest movement and No tachypneic AUSCULTATION: clear to a uscultation bilaterally Cardio: COMMON NORMALS: regular rate, S1 normal heart sound, S2 normal heart sound and no murmurs RATE: regular rate RHYTHM: abnormal rhythm irregularly irregular HEART SOUNDS: S1 normal and S2 normal GI: COMMON NORMALS: normal to inspection, nondistended, normoactive bowel sounds and soft to palpation PALPATION: Yes soft Extremity: COMMON NORMALS: normal to inspection, no clubbing, cyanosis or edema and no pedal edema Neuro: COMMON NORMALS: moves all extremities, no focal motor deficits, no sensory deficits noted and gait normal SENSORIUM/ORIENTATION: Yes alert and Yes other (unable to gauge orientation as non-verbal) OTHER: -noted resting tremor of RUE -does not follow commands Psych: COMMON NORMALS: mental status grossly normal, thought process normal, cooperative, affect normal and speech normal ATTITUDE: Yes calm SPEECH: Yes normal speech MOOD & AFFECT: Yes flat affect THOUGHT PROCESS: normal thought process Skin: COMMON NORMALS: no rashes or lesions noted, no jaundice, no petechiae and no mottling GENERAL SKIN EXAM: no rashes or lesions noted Data : 02/19/20 04:42 02/19/20 04:42 Micro: Microbiology 02/17/20 18:35 Urine Culture - Preliminary Urine,Clean Catch 02/17/20 18:09 Blood Culture - Preliminary Blood NEGATIVE TO DATE 02/17/20 18:08 Blood Culture - Preliminary Blood NEGATIVE TO DATE A&P Assessment and plan (1) Acute encephalopathy: -With minimal responsiveness over the past several days and clinical evidence of evolving CVA involving right basal ganglia/white matter with noted m ild mass-effect on right lateral ventricle on CT head done on admission. This is also compounded by decreased oral intake and associated dehydration, likely underlying vascular dementia -Continues to be minimally responsive clinically -Neurochecks, fall/seizure/aspiration precautions -PT/OT/ST evaluations if possible; no purposeful interaction -Currently NPO -continue to monitor vital signs, seems to be more hemodynamically stable today -continue empiric antibiotics (ceftriaxone/flagyl) for treatment of possible UTI and aspiration -no acute findings on CXR -mild leukocytosis, continue to trend Status: Acute (2) CVA (cerebral vascular accident): -Has known history of multiple CVAs in the past Status: Chronic Qualifiers: CVA mechanism: unspecified Qualified Code(s): I63.9 - Cerebral infarction, unspecified (3) Abnormal urinalysis: -noted UA, contaminated sample -on empiric Ceftriaxone Status: Acute (4) A-fib: -noted to have atrial fibrillation with RVR, appears to be new onset -on BB PRN IV -telemetry monitoring -has not been on AC Status: Acute Qualifiers: Atrial fibrillation type: unspecified Qualified Code(s): I48.91 - Unspecified atrial fibrillation (5) Seizure disorder: -has known seizure disorder -on IV Keppra -seizure precautions Status: Chronic (6) Vascular dementia: Status: Chronic Qualifiers: Dementia behavioral disturbance: without behavioral disturbance Qualified Code(s): F01.50 - Vascular dementia without behavioral disturbance (7) Depression: Status: Chronic Qualifiers: Depression Type: unspecified Qualified Code(s): F32.9 - Major depressive disorder, single episode, unspecified Additional A&P Information -Advanced age -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 Called and spoke with Johnson and updated him on patient's clinical status including lack of improvement and poor prognosis. He verbalizes understanding and gives us permission to start transition back to SNF on comfort measures. -very guarded prognosis Attestations Medical Necessity Statement*: Patient requires hospitalization for continued post-CVA care including IVF hydration, pending appropriate disposition. If disposition finalized, may discharge later today. Time Spent in Patient Care: Greater than 35 minutes (>than 50% of time spent in counselling and/or direct pt care on unit) . Coding Level of Care Code Acute Safety Counselor for [facility] Diagnoses Acute encephalopathy G93.40 CVA (cerebral vascular accident) I63.9 CVA mechanism: unspecified Abnormal urinalysis R82.90 A-fib I48.91 Atrial fibrillation type: unspecified Seizure disorder G40.909 Vascular dementia F01.50 Dementia behavioral disturbance: without behavioral disturbance Depression F32.9 Depression Type: unspecified
--- NOTE | 2020-02-19 12:41 | P.DS_ITS ---
Discharge Providers Date of Admission: 02/17/20 19:07 Date of Discharge: February 19, 2020 Attending Provider at Admission: Juhi Bush MD Attending Provider at Discharge: Priscilla Feliz MD Primary Care Provider: Sd Shields MD Diagnoses at Discharge Discharge Diagnosis (1) Acute encephalopathy: Status: Acute Problem details: -With minimal responsiveness over the past several days and clinical evidence of evolving CVA involving right basal ganglia/white matter with noted mild mass- effect on right lateral ventricle on CT head done on admission. This is also compounded by decreased oral intake and associated dehydration, likely underlying vascular dementia -Continues to be minimally responsive clinically -Neurochecks, fall/seizure/aspiration precautions -PT/OT/ST evaluations if possible; no purposeful interaction -Currently NPO -continue to monitor vital signs, seems to be more hemodynamically stable today -continue empiric antibiotics (ceftriaxone/flagyl) for treatment of possible UTI and aspiration -no acute findings on CXR -mild leukocytosis, continue to trend (2) CVA (cerebral vascular accident): Status: Chronic Problem details: -Has known history of multiple CVAs in the past Qualifiers: CVA mechanism: unspecified Qualified Code(s): I63.9 - Cerebral infarction, unspecified (3) Abnormal urinalysis: Status: Acute Problem details: -noted UA, contaminated sample -on empiric Ceftriaxone (4) A-fib: Status: Acute Problem details: -noted to have atrial fibrillation with RVR, appears to be new onset -on BB PRN IV -telemetry monitoring -has not been on AC Qualifiers: Atrial fibrillation type: unspecified Qualified Code(s): I48.91 - Unspecified atrial fibrillation (5) Seizure disorder: Status: Chronic Problem details: -has known seizure disorder -on IV Keppra -seizure precautions (6) Vascular dementia: Status: Chronic Qualifiers: Dementia behavioral disturbance: without behavioral disturbance Qualified Code(s): F01.50 - Vascular dementia without behavioral disturbance (7) Depression: Status: Chronic Qualifiers: Depression Type: unspecified Qualified Code(s): F32.9 - Major depressive disorder, single episode, unspecified Other Information Additional DC diagnoses/information: -Advanced age -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 Has had no clinical improvement in the past 24 to 48 hours despite the aforementioned treatment. Attempts were made by PT/OT/ST to evaluate the patient but due to non-purposeful movement and inability to interact or participate in evaluations this was not done successfully. Patient has remained NPO due to her inability to follow commands or swallow. I have discussed case with patient's DPOA and updated him as to patient's lack of clinical improvement and he is agreeable to transitioning her back to SNF with comfort measures at this time. Prognosis continues to be very poor. Discharge Summary: -Patient to follow up with primary care provider per SNF Physical Exam Const: COMMON NORMALS: no apparent distress and alert GENERAL APPEARANCE: cooperative, comfortable and frail appearing ORIENTATION/CONSCIOUSNESS: Yes awake OTHER: -unable to gauge orientation as not verbally responsive HENMT: COMMON NORMALS: normocephalic and head/scalp atraumatic HEAD & SCALP: normocephalic and atraumatic MOUTH: moist mucous membranes abnormal Details: parched TEETH & GINGIVA: Yes edentulous Eye: COMMON NORMALS: PERRL, EOMs intact bilaterally and conjunctivae normal CONJUNCTIVA: Yes conjunctivae normal PUPIL: Yes PERRL Neck/C-Spine: COMMON NORMALS: full ROM GENERAL: Yes normal visual inspection and Yes trachea midline Resp: COMMON NORMALS: normal respiratory effort, no retractions, no use of accessory muscles and clear to auscultation bilaterally EFFORT & INSPECTION: Yes symmetric chest movement and No tachypneic AUSCULTATION: clear to auscultation bilaterally Cardio: COMMON NORMALS: regular rate, S1 normal heart sound, S2 normal heart sound and no murmurs RATE: regular rate RHYTHM: abnormal rhythm irregularly irregular HEART SOUNDS: S1 normal and S2 normal GI: COMMON NORMALS: normal to inspection, nondistended, normoactive bowel sounds and soft to palpation PALPATION: Yes soft Extremity: COMMON NORMALS: normal to inspection, no clubbing, cyanosis or edema and no pedal edema Neuro: COMMON NORMALS: moves all extremities, no focal motor deficits, no sensory deficits noted and gait normal SENSORIUM/ORIENTATION: Yes alert and Yes other (unable to gauge orientation as non-verbal) OTHER: -noted resting tremor of RUE -does not follow commands Psych: COMMON NORMALS: mental status grossly normal, thought process normal, cooperative, affect normal and speech normal ATTITUDE: Yes calm SPEECH: Yes normal speech MOOD & AFFECT: Yes flat affect THOUGHT PROCESS: normal thought process Skin: COMMON NORMALS: no rashes or lesions noted, no jaundice, no petechiae and no mottling GENERAL SKIN EXAM: no rashes or lesions noted Discharge Data Data Completed and Pending: Completed Studies During Hospitalization Category Date Time Status CT head wo con* 7 0450 Urgent Cat Scan 02/17/20 17:13 Completed XR chest 1V ankit ble [id number] Urgent Exams 02/17/20 17:13 Completed Pending at discharge Category Date Time Status Blood Culture Sta t Lab 02/17/20 18:08 Results Urine Culture Sta t Lab 02/17/20 18:35 Results Labs from last 24 hours 02/19/20 02/19/20 04:42 04:42 WBC 14.7 H RBC 4.22 Hgb 13.0 Hct 44.6 MCV 105.7 H MCH 30.8 MCHC 29.1 L RDW 17.2 H Plt Count 218 MPV 11.8 H Neut % (Auto) 84.7 Lymph % (Auto) 9.6 Gooding % (Auto) 4.7 Eos % (Auto) 0.2 Baso % (Auto) 0.1 Neut # (Auto) 12.4 H Lymph # (Auto) 1.4 Gooding # (Auto) 0.7 Eos # (Auto) 0.0 Baso # (Auto) 0.0 Nucleated RBC % (a uto) 0.1 Nucleated RBCs # 0.0 Sodium 160 H Potassium 3.7 Chloride 126 H Carbon Dioxide 23 Anion Gap 14.7 BUN 22 Creatinine 0.4 L Glucose 115 Calculated Osmolal ity 328 H Calcium 8.5 Vitals: Last Vital Signs Temp 98.7 F 02/19/20 12:00 Pulse 109 H 02/19/20 12:00 Resp 18 02/19/20 12:00 BP 104/69 02/19/20 12:00 Pulse Ox 97 02/19/20 12:00 Discharge Plan Discharge Patient Disposition: Xfer SNF Condition: Serious Prescriptions: New atropine 1 % drops 2 drop SUBLINGUAL Q1H PRN (Reason: secretions) Qty: 15 RF: 0 morphine 20 mg/5 mL (4 mg/mL) solution 5 mg PO Q4H PRN (Reason: dyspnea or pain) Qty: 100 RF: 0 lorazepam 2 mg/mL concentrate 1 mg SUBLINGUAL Q4H PRN (Reason: anxiety) Qty: 30 RF: 0 Continued acetaminophen See Rx Instructions .ROUTE .COMPLEX RF: 0 Discontinued acetaminophen 325 mg Tablet See Rx Instructions .ROUTE .COMPLEX RF: 0 Tylenol 325 mg Tablet 650 mg PO BID RF: 0 Senna-S 8.6-50 mg Tablet 2 tab PO BID RF: 0 Plavix 75 mg Tablet 75 mg PO DAILY RF: 0 Pepcid 20 mg Tablet 20 mg PO DAILY RF: 0 Milk of Magnesia 400 mg/5 mL Suspension See Rx Instructions .ROUTE .COMPLEX RF: 0 losartan 25 mg Tablet 12.5 mg PO DAILY RF: 0 Lexapro 10 mg Tablet 10 mg PO DAILY RF: 0 Dulcolax (bisacodyl) 4 tab PO PRN RF: 0 Mylanta Maximum Strength 30 ml PO Q6H PRN (Reason: Indigestion) RF: 0 1/2 Ns Tko See Rx Instructions .ROUTE .COMPLEX RF: 0 Diflucan 100 mg Tablet 100 mg PO DAILY RF: 0 Keppra 500 mg Tablet 500 mg PO DAILY RF: 0 Zofran 4 mg Tablet 4 mg PO Q8H PRN (Reason: Nausea) RF: 0 ceftriaxone 1 gram Recon Soln 1 g IV EVERY OTHER DAY RF: 0 Dulcolax (bisacodyl) 10 mg Suppository 10 mg NM PRN RF: 0 magnesium citrate Solution See Rx Instructions .ROUTE .COMPLEX RF: 0 albuterol sulfate 90 mcg/actuation Hfa Aerosol Inhaler 2 puff INHALATION Q4H PRN (Reason: Wheezing) RF: 0 acetaminophen 500 mg/15 mL Liquid 500 mg PO Q4H PRN (Reason: Pain) RF: 0 Florastor 250 mg Capsule 25 mg PO DAILY RF: 0 Ds 1/2 Ns With 10 Meq Kcl See Rx Instructions .ROUTE .COMPLEX RF: 0 Nystatin Solution 5 ml PO QID RF: 0 Ss Emema See Rx Instructions .ROUTE .COMPLEX RF: 0 guaifenesin 2 tsp PO Q6H PRN (Reason: Cough) RF: 0 nystatin See Rx Instructions .ROUTE .COMPLEX RF: 0 Discharge Orders: Discharge Order (Routine); Ordered 02/19/20 Ordered By: Priscilla Feliz Referrals: [facility] [Other] Sd Sheilds MD [Primary Care Provider] - 4-7 days (On comfort care) Discharge Diet: As Directed Discharge Activity: Bedrest Activity Restrictions/Additional Instructions: -Patient is to be on comfort measures and kept NPO -Can use supplemental oxygen as needed for patient comfort Discharge Attestations Time Spent in Discharge Care*: greater than 30 min Specific Discharge Activities: Specific discharge activities: educating and/or supporting family/caregiver, discussing with hospice case manager/social workers/dc planners, documenting/other paperwork and evaluating patient/reviewing data Status at Discharge: Cognitive status at discharge: severely impaired cognition , Behavioral status at discharge: dependent in ADL's , Functional status at discharge: bed bound Overall status at discharge: patient has a new baseline Quality Metrics Clinical Quality Measures During this hospital stay, did patient experience: Stroke Contraindication to Antithrombotic: Other (patient unresponsive) Contraindication to Anticoagul ation: Other (patient unresponsive) Contraindication to Statin: Other (patient unresponsive) Reason rehab assessment not done: Unresponsive (but PT/OT/ST all attempted evaluation) Coding Level of Care Code Acute Auto Electrical Technician for g Fwd Diagnoses Acute encephalopathy G93.40 CVA (cerebral vascular accident) I63.9 CVA mechanism: unspecified Abnormal urinalysis R82.90 A-fib I48.91 Atrial fibrillation type: unspecified Seizure disorder G40.909 Vascular dementia F01.50 Dementia behavioral disturbance: without behavioral disturbance Depression F32.9 Depression Type: unspecified
== END 2020-02-19 17:00 | disposition skilled nursing facility (03) | DRG 64 ==
LOC: ER 19:18 → MEDSURG 19:37
PROVIDERS: Admitting Provider Hospitalist; Emergency Provider Emergency Medicine; PCP Internal Medicine; Visit Provider Family Medicine
DX: I63.9 Cerebral infarction, unspecified (principal); G93.41 Metabolic encephalopathy; J69.0 Pneumonitis due to inhalation of food and vomit; N39.0 Urinary tract infection, site not specified; E87.0 Hyperosmolality and hypernatremia; I48.91 Unspecified atrial fibrillation; Z66 Do not resuscitate; I69.998 Other sequelae following unspecified cerebrovascular disease; H54.3 Unqualified visual loss, both eyes; D64.9 Anemia, unspecified; F32.9 Major depressive disorder, single episode, unspecified; E11.9 Type 2 diabetes mellitus without complications; Z79.4 Long term (current) use of insulin; Z87.01 Personal history of pneumonia (recurrent); G40.909 Epilepsy, unspecified, not intractable, without status epilepticus; F03.90 Unspecified dementia, unspecified severity, without behavioral disturbance, psychotic disturbance, mood disturbance, and anxiety; F01.50 Vascular dementia, unspecified severity, without behavioral disturbance, psychotic disturbance, mood disturbance, and anxiety; Z87.891 Personal history of nicotine dependence; E86.0 Dehydration
CPT/HCPCS: 12345; 36415; 70450; 71045; 80048; 80053; 81001; 83605; 85025; 85610; 87040; 87086; 93005; 96375; 97163; 97166; 97530; 99284; A9270; J0696; J1953; J3490; J7030; S0030